=== PATIENT | male | born 1945 | race Caucasian/White ===

== ENCOUNTER 2024-06-24 19:48 | Emergency (ER) | payer MEDICARE, BC ==
[2024-06-24 21:53] LABS: BASOPHILS PERCENT AUTO 1.4 % (0.1-1.3); EOSINOPHILS PERCENT AUTO 2.7 % (0.0-5.4); HEMATOCRIT 46.4 % (38.4-49.7); HEMOGLOBIN 16.1 g/dL (12.9-16.9); IMMATURE GRAN PERCENT AUTO 0.1 % (0.0-0.7); LYMPHOCYTES ABSOLUTE AUTO 2.97 K/uL (0.8-3.3); LYMPHOCYTES PERCENT AUTO 40.4 % (11.4-47.7); MEAN CORPUSCULAR HGB CONC 34.7 g/dL (31.6-35.5); MEAN CORPUSCULAR VOLUME 97.9 fL (81.4-99.0); MONOCYTES ABSOLUTE AUTO 1.21 K/uL (0.20-0.90); MONOCYTES PERCENT AUTO 16.5 % (3.3-12.6); NEUTROPHILS ABSOLUTE AUTO 2.86 K/uL (1.0-7.6); NEUTROPHILS PERCENT AUTO 38.9 % (40.0-78.1); PLATELET COUNT,PLT 302 K/uL (130-375); RED BLOOD CELL COUNT 4.74 M/uL (4.14-5.76); WHITE BLOOD CELL COUNT,WBC 7.4 K/uL (3.2-11.0)
[2024-06-24 21:56] LABS: IMMATURE GRAN ABSOLUTE AUTO 0.01 K/uL (0.00-0.23)
[2024-06-24 22:22] LABS: BLOOD UREA NITROGEN,BUN 17 mg/dL (7-18); CALCIUM 9.9 mg/dL (8.5-10.1); CARBON DIOXIDE,CO2 26 mmol/L (21-32); CREATININE 1.1 mg/dL (0.8-1.3); EST CRCL DRUG DOSING (CG) 56.22 mL/min; ESTIMATED GFR 68 mL/min (>60); GLUCOSE RANDOM 145 mg/dL (74-106); TROPONIN I HIGH SENSITIVITY 6.3 pg/mL (<=60.3)
[2024-06-24] MEDS: Alum Hydrox/Mag Hydrox/Simeth 15 ML, Lidocaine 2% 15 ML PO ONE (22:22)
[2024-06-24] MEDS: Metoprolol Tartrate 25 MG Tab PO ONE (22:22)
[2024-06-24] MEDS: Sodium Chloride 0.9% 500 ML IV ONE (22:23)
[2024-06-24 22:29] LABS: SODIUM,NA 141 mmol/L (140-148)
== END 2024-06-24 23:05 | disposition home or self-care (01) ==
LOC: JP.ED 19:48
DX: I47.10 Supraventricular tachycardia, unspecified (principal); I10 Essential (primary) hypertension; K21.9 Gastro-esophageal reflux disease without esophagitis; E03.9 Hypothyroidism, unspecified; Z79.899 Other long term (current) drug therapy
CPT/HCPCS: 36415; 80048; 84484; 85025; 93005; 96360; 99285; A9270; J7040